=== PATIENT | female | born 1950 | race Caucasian/White ===

== ENCOUNTER 2019-11-14 08:59 | Day surgery (SDC) | payer MEDICARE, OTHER ==
[~2019-11-14] VITALS: Ht 157.5 cm; Wt 53.1 kg
[~2019-11-14 08:59] MED LIST: BIOTIN5000 MCG PO; CALCIUM + VITA1 EACH PO; CENTRUM SILVER1 EAC3 PO; IBUPROFEN800 MG PO; NORCO 5-325 TA1 EACH PO; PREMARIN42.5 GM VAGINAL; RED YEAST RICE600 MG PO; TOPROL XL100 MG PO; VITAMIN D1000 UNI1 PO
[2019-11-14] MEDS ORDERED: PRAVASTATIN SOD10 MG (09:25)
--- NOTE | 2019-11-14 10:39 | NUR ---
11/14/19 1038 [address] [place] 1032 PT ARRIVED TO PACU, PT ASLEEP AND REACTIVE TO PAINFUL STIMULI.
--- NOTE | 2019-11-15 05:40 | OR ---
[facility] [address], [place] [address] Signed DATE OF OPERATION: 11/14/2019 SURGEON: Kendy Leal MD PREOPERATIVE DIAGNOSES: 1. Mother with colonic polyps, age 85. 2. Internal hemorrhoids. POSTOPERATIVE DIAGNOSIS: Small internal anal skin tags x2. PROCEDURE: Colonoscopy without biopsy. ESTIMATED BLOOD LOSS: None. INDICATIONS: Chiki is a 69-year-old female, asked to see me for followup colonoscopy. In July 2008, she had a colonoscopy for anemia, constipation, rectal bleeding, and anal fissures. She had some internal hemorrhoids, but everything else was quite acceptable. In the meantime, her mother has had colonic polyps removed at age 85. She has no lower GI complaints. In the office, I gave Chiki a pamphlet on colonoscopy. We looked at that together along with the risks including, but not limited to gas, bloating, crampy abdominal pain, bleeding, and perforation requiring surgery, and missed diagnosis. We also reviewed the need for IV conscious sedation. She had expressed understanding and wished to proceed. PROCEDURE NOTE: Chiki was taken into our endoscopy suite and placed in the left lateral decubitus position. She was given a total of 5 mg of Versed and 150 mcg of fentanyl to cover the case. A digital rectal exam was performed and this was unremarkable. The adult colonoscope was introduced and advanced under direct visualization of camera. Chiki is slight of build at 5 feet 2 inches and 116 pounds with a body mass index of 21. Consequently, her sigmoid colon and really her most of her colon fairly small in diameter and it is also a bit long and redundant. It took a little extra sedation and abdominal compression in order to advance the scope up to the cecum. Her prep was good. The scope was slowly withdrawn. We had taken several pictures throughout for photodocumentation. We saw no evidence of any pathology throughout the colon or rectum. Upon retroflexion of scope, we could see two tiny internal anal skin tags. There was Electronically Signed By: KENDY LEAL MD 11/15/19 0540 PATIENT NAME: CHIKI CARVER OPERATIVE REPORT DATE OF : 54 REPORT #: [id number] PHYSICIAN: KENDY LEAL MD PCP: CAROL CAMERON MD REPORT IS CONFIDENTIAL AND NOT TO BE RELEASED WITHOUT AUTHORIZATION [facility] [address] [place] [id number] Signed some very limited internal anal hemorrhoid tissue as well. After this, the gas was suctioned out and colonoscope removed. Chiki tolerated the procedure quite well. RECOMMENDATIONS: Nicole can follow up in 5 years for repeat colonoscopy due to her family history. MD HELEN Campbell/ANDREL /[id number] cc: MD Sharonda Baird MD Andrew L Bower, MD Copies: SHARONDA TINOCO MD, ANDREW L MD ~ Electronically Signed By: KENDY LEAL MD 11/15/19 0540 PATIENT NAME: CHIKI CARVER OPERATIVE REPORT DATE OF : 54 REPORT #: [id number] PHYSICIAN: KENDY LEAL MD PCP: CAROL CAMERON MD REPORT IS CONFIDENTIAL AND NOT TO BE RELEASED WITHOUT AUTHORIZATION
== END 2019-11-14 11:32 | disposition home or self-care (01) ==
LOC: OPS 08:59 → DS 08:59 → OPS 09:45
PROVIDERS: Colon & Rectal Surgery
PROC: 0DJD8ZZ Inspection of Lower Intestinal Tract, Via Natural or Artificial Opening Endoscopic (ICD-10-PCS; principal; 2019-11-14 10:30)
DX: Z12.11 Encounter for screening for malignant neoplasm of colon (principal); K64.8 Other hemorrhoids; K64.4 Residual hemorrhoidal skin tags; Z79.899 Other long term (current) drug therapy; Z83.71 Family history of colonic polyps; Z88.0 Allergy status to penicillin
CPT/HCPCS: 99153; G0500; J2250; J3010; J7121